=== PATIENT | male | born 1970 | race African-American/Black ===

== ENCOUNTER 2017-12-14 07:17 | Emergency (ER) | payer OTHER ==
[~2017-12-14] VITALS: Ht 175.3 cm; Wt 101.3 kg
[2017-12-14 07:19] VITALS: TEMP 36.8; Ht 175.3 cm; Wt 101.3 kg
--- NOTE | 2017-12-14 07:34 | EMERGENCY ROOM VISIT NOTE ---
History First contact with patient: 07:24 Chief Complaint: HEAD PAIN Stated Complaint: PAIN IN RIGHT SIDE OF HEAD/FACE History of Present Illness The patient is a 46 year old male who presents to the Emergency Room via private vehicle accompanied by female with complaints of "pain in right side of head/face". The patient states that he has had pain in the right muslim that radiates to the right jaw times. It is throbbing in nature. It began 2-3 days ago. He has tried ibuprofen, Tylenol, ice and cold medicine without relief. Stretching makes it better. He notes no pain in the neck rather it is in the inferior right jaw. He notes that he smokes 10 cigarettes per day, with occasional alcohol use and marijuana use. He notes he had his first family doctor follow-up in a long time and was noted to have hypertension. He was scheduled for fasting labs today. Review of Systems A complete 10-point Review of Systems was discussed with the patient, with pertinent positives and negatives listed in the History of Present Illness. All remaining Review of Systems questions can be considered negative unless otherwise specified. Past Medical/Surgical History Medical Problems: (1) Appendectomy (2) Bronchitis (3) Tonsillectomy and adenoidectomy Family History Diabetes mellitus Hypertension Social History Smoking Status: Current Every Day Smoker Alcohol Use: none Drug Use: none Marital Status: in relationship Housing Status: lives with family Occupation Status: employed Current/Historical Medications Scheduled Cyclobenzaprine Hcl (Flexeril), 5 MG PO TID Physical Exam Vital Signs Date Time Temp Pulse Resp B/P (MAP) Pulse Ox O2 Delivery O2 Flow Rate FiO2 12/14/17 13:48 61 16 150/96 99 Room Air 12/14/17 12:53 62 20 134/100 100 Room Air 12/14/17 10:42 77 184/110 100 Room Air 12/14/17 09:16 65 179/105 98 Room Air 12/14/17 07:19 36.8 75 18 199/105 100 Room Air Physical Exam VITAL SIGNS - Vital signs and nursing notes were reviewed. Hypertensive GENERAL - 46-year-old male appearing his stated age who is in no acute distress. Communicates well with provider and answers questions appropriately. SKIN - Without rashes. Skin over R side of face and neck unremarkable. HEAD - NC/AT. EYES -there is within normal limits equal movements of the left eye in all gar however the right eye is not able to move superiorly. It is nontender. Sclera anicteric. EARS - No deformities of external structures noted on gross examination bilaterally. External auditory canals without discharge or otorrhea. Tympanic membranes pearly gutierrez without retraction or bulging. No fluid or purulent material visualized behind the TM. Handle of malleus, umbo, cone of light, pars tensa/flaccid all easily visualized. NOSE - Midline and without cyanosis. No epistaxis or purulent drainage noted. MOUTH/OROPHARYNX - Without perioral cyanosis. Buccal mucosa pink and moist and without leukoplakia. Tongue midline with equal elevation of palate bilaterally. No tonsillar hypertrophy, erythema, or exudates noted. Fair dentition noted. NECK - Neck with FROM. Supple to palpation. No lymphadenopathy noted. No nuchal rigidity. LUNGS - Chest wall symmetric without accessory muscle use, intercostals retractions, or central cyanosis. Normal vesicular breath sounds CTA B/L. No wheezes, rales, or rhonchi appreciated. CARDIAC - RRR with S1/S2. No murmur, rubs, or gallops appreciated. EXTREMITIES - No clubbing or peripheral cyanosis. No pretibial edema present. +5 /5 strength noted in UE/LE bilaterally. NEUROLOGIC - Cranial nerves II through XII grossly intact. Sensory intact to light touch throughout. PSYCH - A&O, and cooperates fully with examiner. Pt is very pleasant and interacts well with examiner. Medical Decision & Procedures ER Provider Diagnostic Interpretation: CT OF THE HEAD WITHOUT CONTRAST CLINICAL HISTORY: Right sided temporal, and right jaw pain. COMPARISON STUDY: No previous studies for comparison. CT DOSE: 623.48 mGy.cm TECHNIQUE: Helical axial images of the head were obtained without IV contrast. Automated exposure control was utilized for the study. A dose lowering technique was utilized adhering to the principles of ALARA. FINDINGS: No acute intracranial hemorrhage, midline shift or mass effect is present. Brain findings normal. Ventricular system is normal. The basilar cisterns are patent. There are no extra axial collections. Gutierrez-white differentiation is maintained. There are no findings to suggest acute dural sinus thrombosis or acute territorial infarct. There is mild bilateral basal ganglia calcification. There is trace fluid within the right mastoid air cells. There are minimal secretions within the posterior right ethmoid air cells. There are no significant calvarial abnormalities. IMPRESSION: 1. No acute intracranial findings. 2. Trace fluid within the right mastoid air cells. 3. Minimal secretions within the ethmoid sinuses. Electronically signed by: Ted Rendon M.D. 12/14/2017 9:14 AM Dictated Date/Time: 12/14/2017 9:09 AM Laboratory Results 12/14/17 08:22 Red Blood Count 4.49, Mean Corpuscular Volume 88.0, Mean Corpuscular Hemoglobin 30.1, Mean Corpuscular Hemoglobin Concent 34.2, Mean Platelet Volume 9.8, Neutrophils (%) (Auto) 59.9, Lymphocytes (%) (Auto) 30.9, Monocytes (%) (Auto) 8.1, Eosinophils (%) (Auto) 0.7, Basophils (%) (Auto) 0.1, Neutrophils # (Auto) 4.33, Lymphocytes # (Auto) 2.24, Monocytes # (Auto) 0.59, Eosinophils # (Auto) 0.05, Basophils # (Auto) 0.01 12/14/17 08:22 Test 12/14/17 08:22 White Blood Count 7.24 K/uL (4.8-10.8) Red Blood Count 4.49 M/uL (4.7-6.1) Hemoglobin 13.5 g/dL (14.0-18.0) Hematocrit 39.5 % (42-52) Mean Corpuscular Volume 88.0 fL (80-100) Mean Corpuscular Hemoglobin 30.1 pg (25-34) Mean Corpuscular Hemoglobin Concent 34.2 g/dl (32-36) Platelet Count 258 K/uL (130-400) Mean Platelet Volume 9.8 fL (7.4-10.4) Neutrophils (%) (Auto) 59.9 % Lymphocytes (%) (Auto) 30.9 % Monocytes (%) (Auto) 8.1 % Eosinophils (%) (Auto) 0.7 % Basophils (%) (Auto) 0.1 % Neutrophils # (Auto) 4.33 K/uL (1.4-6.5) Lymphocytes # (Auto) 2.24 K/uL (1.2-3.4) Monocytes # (Auto) 0.59 K/uL (0.11-0.59) Eosinophils # (Auto) 0.05 K/uL (0-0.5) Basophils # (Auto) 0.01 K/uL (0-0.2) RDW Standard Deviation 44.4 fL (36.4-46.3) RDW Coefficient of Variation 13.7 % (11.5-14.5) Immature Granulocyte % (Auto) 0.3 % Immature Granulocyte # (Auto) 0.02 K/uL (0.00-0.02) Erythrocyte Sedimentation Rate 13 mm/hr (0-14) Anion Gap 5.0 mmol/L (3-11) Est Creatinine Clear Calc Drug Dose 129.3 ml/min Estimated GFR () 121.2 Estimated GFR (Non- 104.6 BUN/Creatinine Ratio 12.5 (10-20) Calcium Level 8.3 mg/dl (8.5-10.1) Total Bilirubin 0.2 mg/dl (0.2-1) Aspartate Amino Transf (AST/SGOT) 13 U/L (15-37) Alanine Aminotransferase (ALT/SGPT) 36 U/L (12-78) Alkaline Phosphatase 110 U/L (45-117) Troponin I < 0.015 ng/ml (0-0.045) C-Reactive Protein 1.18 mg/dl (0-0.29) Total Protein 6.9 gm/dl (6.4-8.2) Albumin 3.4 gm/dl (3.4-5.0) Globulin 3.5 gm/dl (2.5-4.0) Albumin/Globulin Ratio 1.0 (0.9-2) Lyme Disease IgG Antibody NEG (NEG) Lyme Disease IgM Antibody NEG (NEG) Medications Administered Medications (Trade) Dose Ordered Sig/Tracy Route Start Time Stop Time Status Last Admin Dose Admin Morphine Sulfate (MoRPHine SULFATE INJ) 4 mg NOW STAT IV 12/14/17 07:57 12/14/17 08:04 DC 12/14/17 08:38 4 MG Ondansetron HCl (Zofran Inj) 4 mg NOW STAT IV 12/14/17 07:57 12/14/17 08:04 DC 12/14/17 08:39 4 MG Morphine Sulfate (MoRPHine SULFATE INJ) 4 mg NOW STAT IV 12/14/17 10:10 12/14/17 10:11 DC 12/14/17 10:22 4 MG Ketorolac Tromethamine (Toradol Inj) 30 mg NOW STAT IV 12/14/17 10:20 12/14/17 10:22 DC 12/14/17 10:38 30 MG Diphenhydramine HCl (Benadryl Inj) 25 mg NOW STAT IV 12/14/17 10:20 12/14/17 10:22 DC 12/14/17 10:38 25 MG Prochlorperazine Edisylate (Compazine Inj) 10 mg NOW STAT IV 12/14/17 10:20 12/14/17 10:22 DC 12/14/17 10:38 10 MG Sodium Chloride 500 ml @ 999 mls/hr Q31M STAT IV 12/14/17 10:20 12/14/17 10:50 DC 12/14/17 10:35 999 MLS/HR Medical Decision Patient was seen and evaluated as above in room D7. Review was performed of nursing notes and vital signs. After obtaining a thorough history and physical examination the above work up was performed. He presents to us today with right -sided temporal pain and right jaw pain. He was given morphine 2 and Zofran. Minimal relief. He was then given fluids, Toradol, Benadryl, Compazine and had complete alleviation of his pain. He was resting and feeling much better. No chest pain. He has no other complaints however blood pressure was found to be elevated upon arrival, and on exam the right eye does not look upward. 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 He thought it was a left eye but it could be the right. His significant other who is been with him for 7 years notes that this will occur at times when he is tired. It was felt by them that this is likely not a new finding however this is not able to be completely verified. CT of the head was obtained. This was negative. No other CVA symptom. CBC reveals no concerning leukocytosis. Slight anemia noted. No metabolic failure evidence. Calcium slightly low at 8.3. He is to follow with the family doctor. I did discuss the case with the attending physician as well as the on-call fire control technician b, Dr. Lynn. He is to follow with him in the outpatient setting. I also discussed this with the on-call neurologist, Dr. Feliz, who recommended MRI/ MRA of the brain. I went to discuss this with the patient and he respectfully declined. I informed him the indication and potential seriousness of the situation. He again declined noting that he would like to go home. He declined inpatient management. He was thoroughly educated upon these risks. He is to follow with the family doctor and neurology/ophthalmology in the outpatient setting by arranging this by calling them as soon as possible. He is to return with worsening. Again it is felt that this is likely with the eye not an acute finding however do believe that follow-up is warranted. I do not suspect acute CVA. The patient was educated upon management, had questions answered prior to discharge, and was discharged home in good condition. Bedside EKG per my interpretation reveals normal sinus rhythm rate of 63 bpm, minimal T-wave inversion in V1. No contiguous involvement. Case was discussed with the attending physician. In the evaluation and treatment of this patient, the following differential diagnoses were considered: Migraine Headache, Intracranial Hemorrhage, Subdural Hematoma, Subarachnoid Hemorrhage, Cerebral Aneurysm, Temporal/Giant Cell Arteritis, Tension Headache, Meningitis, Encephalitis, or Hydrocephalus. Impression Primary Impression: Temporal pain Additional Impressions: Elevated blood pressure reading Anemia Departure Information Dispostion Home / Self-Care Condition GOOD Prescriptions Cyclobenzaprine Hcl (FLEXERIL) 5 Mg Tab 5 MG PO TID for 5 Days, #15 TAB PRN Prov: Jovi Corbin PA-C 12/14/17 Referrals No Doctor, Assigned (PCP) Jason Lynn D.O. Schaefer, Kathleen A., M.D. Patient Instructions My [facility] Additional Instructions You have been treated in the Emergency Department for a Headache. You have received pain medicine in the emergency department which impairs your ability to operate a vehicle. It is illegal for you to drive after receiving these medicines. Please call your family doctor to schedule follow-up regarding your symptoms today as well as your elevated blood pressure. Please call them as soon as possible. Flexeril 5mg as needed every 8 hours for muscle spasm. For pain control, you can use the following [id number] medicines (if >12 yo): - Regular strength (325mg/tab) Tylenol (acetaminophen) 2 tabs every 4-6 hours as needed. Do not exceed 12 tablets in a 24 hour period. Avoid taking more than 3 grams (3000 mg) of Tylenol per day. This includes any other sources of acetaminophen you may take on a regular basis. - Regular strength (200 mg/tab) Advil (ibuprofen) 1-2 tabs every 4-6 hours as needed. Do not exceed a dose of 3200 mg per day. You should relax in a quiet, dark place for the rest of the day. Avoid any possible triggers including: cigarette smoke, caffeine, nicotine, chocolate, wine, beer, loud noises or music, or bright lights. You should schedule a follow-up appointment in 2-3 days with your Primary Care Provider or established Neurologist for further evaluation and treatment of your Headache. Please call neurologist (Dr. Feliz) as soon as possible to schedule follow up. They did recommend MRI of your brain to be completed here today. You have respectfully declined this. Please also call Dr. Lynn, the eye doctor to schedule follow up. Return to the Emergency Department if your current symptoms worsen despite treatment course outlined above, or if you develop any of the following symptoms : intractable pain despite aforementioned treatment course, visual disturbances , loss of vision, unilateral weakness or facial drooping, slurring of speech, loss of coordination, or loss of consciousness. Problem Qualifiers
[2017-12-14] MEDS ORDERED: ONDANSETRON INJ 2 MG/ML 2 ML VIAL IV STA (07:57)
[2017-12-14] MEDS ORDERED: MoRPHine SULFATE 4 MG/ML 1 ML CARP\\VIAL IV STA ×2 (07:57→10:10)
[2017-12-14 08:33] LABS: BASO % 0.1 %; BASO ABS # 0.01 K/uL (0-0.2); EOS % 0.7 %; EOS ABS # 0.05 K/uL (0-0.5); HEMATOCRIT 39.5 % (42-52); HEMOGLOBIN 13.5 g/dL (14.0-18.0); IG# 0.02 K/uL (0.00-0.02); LYMPH % 30.9 %; LYMPH ABS # 2.24 K/uL (1.2-3.4); MEAN CORPUSCULAR HEMOGLOBIN 30.1 pg (25-34); MEAN CORPUSCULAR HGB CONC 34.2 g/dl (32-36); MEAN PLATELET VOLUME 9.8 fL (7.4-10.4); MONO % 8.1 %; MONO ABS # 0.59 K/uL (0.11-0.59); NEUT % 59.9 %; NEUT ABS # 4.33 K/uL (1.4-6.5); PLATELET COUNT 258 K/uL (130-400); RED CELL DISTRIBUTION WIDTH CV 13.7 % (11.5-14.5); RED CELL DISTRIBUTION WIDTH SD 44.4 fL (36.4-46.3); WHITE BLOOD COUNT 7.24 K/uL (4.8-10.8)
[2017-12-14 08:47] LABS: ALBUMIN 3.4 gm/dl (3.4-5.0); ALT/SGPT 36 U/L (12-78); AST/SGOT 13 U/L (15-37); BLOOD UREA NITROGEN 10 mg/dl (7-18); CALCIUM 8.3 mg/dl (8.5-10.1); CARBON DIOXIDE 26 mmol/L (21-32); CREATININE 0.82 mg/dl (0.60-1.40); GLUCOSE 127 mg/dl (70-99); POTASSIUM 3.7 mmol/L (3.5-5.1); SODIUM 139 mmol/L (136-145)
[2017-12-14 08:52] LABS: ALKALINE PHOSPHATASE 110 U/L (45-117); TOTAL PROTEIN 6.9 gm/dl (6.4-8.2)
--- NOTE | 2017-12-14 09:15 | DIAGNOSTIC IMAGING REPORT ---
CT OF THE HEAD WITHOUT CONTRAST CLINICAL HISTORY: Right sided temporal, and right jaw pain. COMPARISON STUDY: No previous studies for comparison. CT DOSE: 623.48 mGy.cm TECHNIQUE: Helical axial images of the head were obtained without IV contrast. Automated exposure control was utilized for the study. A dose lowering technique was utilized adhering to the principles of ALARA. FINDINGS: No acute intracranial hemorrhage, midline shift or mass effect is present. Brain findings normal. Ventricular system is normal. The basilar cisterns are patent. There are no extra axial collections. Gutierrez-white differentiation is maintained. There are no findings to suggest acute dural sinus thrombosis or acute territorial infarct. There is mild bilateral basal ganglia calcification. There is trace fluid within the right mastoid air cells. There are minimal secretions within the posterior right ethmoid air cells. There are no significant calvarial abnormalities. IMPRESSION: 1. No acute intracranial findings. 2. Trace fluid within the right mastoid air cells. 3. Minimal secretions within the ethmoid sinuses. Electronically signed by: Ted Rendon M.D. 12/14/2017 9:14 AM Dictated Date/Time: 12/14/2017 9:09 AM
[2017-12-14] MEDS ORDERED: DiphenhydrAMINE HCL 50 MG/ML VIAL IV STA (10:20)
[2017-12-14] MEDS ORDERED: SODIUM CHLORIDE 0.9% 500ML 500 ML IV STA (10:20)
[2017-12-14] MEDS ORDERED: PROCHLORPERAZINE 5 MG/ML 2 ML VIAL IV STA (10:20)
[2017-12-14] MEDS ORDERED: KETOROLAC TROMETHAMINE 30 MG/ML VIAL IV STA (10:20)
[2017-12-14] MEDS ORDERED: CYCL5TAB PO (12:32)
[2017-12-14 13:48] VITALS: BP 150/96; PULSE 61; O2SAT 99
== END 2017-12-14 13:50 | disposition home or self-care (01) ==
LOC: C.EDB 07:19
DX: R51 Headache (principal); H57.8 Other specified disorders of eye and adnexa; R03.0 Elevated blood-pressure reading, without diagnosis of hypertension; D64.9 Anemia, unspecified; E83.51 Hypocalcemia; F17.210 Nicotine dependence, cigarettes, uncomplicated; Z82.49 Family history of ischemic heart disease and other diseases of the circulatory system